=== PATIENT | female | born 1960 | race African-American/Black ===

== ENCOUNTER 2017-05-14 21:56 | Emergency (ER) | payer OTHER, BC ==
[~2017-05-14] VITALS: Ht 160 cm; Wt 83.0 kg
[2017-05-14 22:12] VITALS: BP 194/110; PULSE 86; RESP 16; TEMP 98; O2SAT 97
--- NOTE | 2017-05-14 22:37 | PD ---
HPI Chief Complaint: Musculoskeletal Complaint Time Seen by Provider: 22:32 Travel History International Travel<30 days: No Contact w/Intl Traveler<30days: No Traveled to known affect area: No History of Present Illness HPI 57-year-old female patient presents to the ER today because she states that she was walking in the parking lot after work and tripped on the pavement and fell onto both hands and her left rib area. She denies any head injury or loss of consciousness. She denies any shortness of breath or any other injuries. Modifying Factors: None Associated Signs & Symptoms: Trip and fall, left rib pain Risk Factors: None PFSH Past Surgical History Hysterectomy: Yes (Partial) Social History Tobacco Use: No Allergies-Medications (Allergen,Severity, Reaction): Coded Allergies: No Known Allergies (Verified Allergy, Unknown, 05/14/17) Reported Meds & Prescriptions Reported Meds & Active Scripts Active No Active Prescriptions or Reported Medications Review of Systems Except as stated in HPI: all other systems reviewed are Neg Physical Exam Narrative GENERAL: Well-developed middle age -[place] female patient currently in mild distress. Awake and oriented 3. SKIN: Focused skin assessment warm/dry. HEAD: Atraumatic. Normocephalic. EYES: Pupils equal and round. No scleral icterus. No injection or drainage. ENT: No nasal bleeding or discharge. Mucous membranes pink and moist. NECK: Trachea midline. No JVD. Supple. CHEST: Mild tenderness to the left lateral chest wall without deformity or crepitance. No retractions or use of accessory muscles. CARDIOVASCULAR: Regular rate and rhythm. No murmur appreciated. RESPIRATORY: No accessory muscle use. Clear to auscultation. Breath sounds equal bilaterally. GASTROINTESTINAL: Abdomen soft, non-tender, nondistended. Hepatic and splenic margins not palpable. Pelvis: Stable and nontender to palpation. EXTREMITIES: No clubbing, cyanosis, or edema. No joint tenderness, effusion, or edema noted. No snuffbox tenderness bilaterally. 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 No significant abrasions or lacerations. MUSCULOSKELETAL: No obvious deformities. No clubbing. No cyanosis. No edema. NEUROLOGICAL: Awake and alert. No obvious cranial nerve deficits. Motor grossly within normal limits. Normal speech. PSYCHIATRIC: Appropriate mood and affect; insight and judgment normal. Data Data Last Documented VS Vital Signs Date Time Temp Pulse Resp B/P (MAP) Pulse Ox O2 Delivery O2 Flow Rate FiO2 1/26/18 22:39 88 16 171/106 (127) 98 Room Air 05/14/17 22:12 98.0 Orders Orders Ribs, Uni (W/Exp Cxr-Min 3vw) (05/14/17 ) MDM Medical Decision Making Medical Screen Exam Complete: Yes Emergency Medical Condition: Yes Medical Record Reviewed: Yes Interpretation(s) Last 24 hours Impressions Ribs X-Ray 05/14/17 0000 Signed Impressions: Service Date/Time: Sunday, May 14, 2017 22:46 - CONCLUSION: No rib fracture is seen. Eric Carter MD Differential Diagnosis Trip and fall, left rib injury: Contusion versus rib fracture Narrative Course X-ray did not show any signs of rib fractures. At this point, my plan would be to release her with follow-up to primary care physician as needed. Return for any worsening in pain, or new symptoms as needed. The plan has been discussed with patient and she states understanding. Diagnosis Primary Impression: Fall (on)(from) sidewalk curb, initial encounter Additional Impression: Contusion of rib on left side Med/Other Pt SpecificInfo: Prescription(s) given Scripts Acetaminophen (Tylenol) 325 Mg Tab 650 MG PO Q6H Y for PAIN SCALE 1 TO 10, #15 TAB 0 Refills Prov: Courtney Lebron MD 05/14/17 Disposition: 01 DISCHARGE HOME Condition: Stable Courtney Lebron MD May 14, 2017 22:37
[2017-05-14 22:39] VITALS: BP 171/106; PULSE 88; RESP 16; O2SAT 98
--- NOTE | 2017-05-14 23:27 | RADRPT ---
EXAM DATE/TIME: 05/14/2017 22:46 [facility] COMPARISON: No previous studies available for comparison. INDICATIONS : Left anterior, superior rib pain post fall. MEDICAL HISTORY : None. SURGICAL HISTORY : None. ENCOUNTER: Initial ACUITY: 1 day PAIN SCORE: 10/10 LOCATION: Left chest FINDINGS: Multiple views of the left ribs were performed. There is no evidence of displaced fracture. No dest ructive lesions or areas of periosteal thickening are seen. Expiratory view of the chest is negative for pneumothorax. The mediastinal structures are midline. CONCLUSION: No rib fracture is seen. Eric Carter MD on May 14, 2017 at 23:23 Board Certified Radiologist. This report was verified electronically.
[2017-05-14] MEDS ORDERED: TYLE325T PO (23:34)
[2017-05-14 23:53] VITALS: BP 162/90
== END 2017-05-14 23:55 | disposition home or self-care (01) ==
LOC: PHED 21:56
DX: S20.212A Contusion of left front wall of thorax, initial encounter (principal); W01.0XXA Fall on same level from slipping, tripping and stumbling without subsequent striking against object, initial encounter; Y93.01 Activity, walking, marching and hiking; Y92.481 Parking lot as the place of occurrence of the external cause
CPT/HCPCS: 71101; 99283

== ENCOUNTER 2017-06-16 17:11 | Observation (INO) | payer BC, OTHER ==
[2017-06-16] VITALS (7 sets, daily range): BP systolic 155–213; BP diastolic 85–110; PULSE 99–125; RESP 14–22; TEMP 98.5–99.5; O2SAT 96–100
[~2017-06-16] VITALS: Ht 157.5 cm; Wt 81.0 kg
[~2017-06-16 17:11] MED LIST: TYLE325T PO
[2017-06-16] MEDS ORDERED: SODIUM CHLORIDE 0.9% FLUSH 10 ML FLUSH IV FLUSH PRN ×2 (17:45→21:00)
--- NOTE | 2017-06-16 18:14 | PD ---
HPI Chief Complaint: Dizziness Time Seen by Provider: 17:28 Travel History International Travel<30 days: No Contact w/Intl Traveler<30days: No Traveled to known affect area: No History of Present Illness HPI Patient 57-year-old female presents emergency department with several complaints. Her chief complaint is dizziness feeling like the room is spinning around which been going on on and off for the past few months but got worse over the past few hours. She has not seen another physician for this. She also endorses some chest tightness in the center of her chest and some numbness and tingling in her left arm. She states these are new complaints today. Has no history of heart disease or lung disease. Has never had a stress test or cardiac catheterization. States symptoms are moderate to severe, gradually worsening but intermittent over the past few months, associated with hypertension. PFSH Past Medical History Diminished Hearing: No Past Surgical History Hysterectomy: Yes (Partial) Social History Alcohol Use: No Tobacco Use: No Substance Use: No Allergies-Medications (Allergen,Severity, Reaction): Coded Allergies: No Known Allergies (Verified Allergy, Unknown, 06/16/17) Reported Meds & Prescriptions Reported Meds & Active Scripts Active No Active Prescriptions or Reported Medications Review of Systems Except as stated in HPI: all other systems reviewed are Neg Physical Exam Narrative GENERAL: Well-developed well-nourished in no obvious distress, quite pleasant peer SKIN: Focused skin assessment warm/dry. HEAD: Atraumatic. Normocephalic. EYES: Pupils equal and round. No scleral icterus. No injection or drainage. ENT: No nasal bleeding or discharge. Mucous membranes pink and moist. NECK: Trachea midline. No JVD. CARDIOVASCULAR: tachycardic with regular rhythm, no murmurs gallops or rubs.. No murmur appreciated. RESPIRATORY: No accessory muscle use. Clear to auscultation. Breath sounds equal bilaterally. GASTROINTESTINAL: Abdomen soft, non-tender, nondistended. Hepatic and splenic margins not palpable. MUSCULOSKELETAL: No obvious deformities. No clubbing. No cyanosis. No edema. NEUROLOGICAL: Awake and alert. Cranial nerves II through XII are grossly intact and nonfocal, 5 out of 5 strength in all 4 extremities, cerebellar testing with [id number] and heel cox testing negative peer PSYCHIATRIC: Appropriate mood and affect; insight and judgment normal. Data Data Last Documented VS Vital Signs Date Time Temp Pulse Resp B/P (MAP) Pulse Ox O2 Delivery O2 Flow Rate FiO2 06/16/17 19:15 100 18 155/101 (119) 98 Room Air 06/16/17 17:22 99.5 Orders Orders Electrocardiogram (06/16/17 ) Complete Blood Count With Diff (06/16/17 17:44) Comprehensive Metabolic Panel (06/16/17 17:44) Prothrombin Time / Inr (Pt) (06/16/17 17:44) Act Partial Throm Time (Ptt) (06/16/17 17:44) Troponin I (06/16/17 17:44) Thyroid Stimulating Hormone (06/16/17 17:44) Urinalysis - C+S If Indicated (06/16/17 17:44) Chest, Single Ap (06/16/17 17:44) Ct Brain W/O Iv Contrast(Rout) (06/16/17 17:44) Blood Glucose (06/16/17 17:44) Ecg Monitoring (06/16/17 17:44) Iv Access Insert/Monitor (06/16/17 17:44) Oximetry (06/16/17 17:44) Sodium Chloride 0.9% Flush (Ns Flush) (06/16/17 17:45) Diazepam (Valium) (06/16/17 18:30) Nitroglycerin 2% Oint (Nitroglycerin 2% (06/16/17 19:00) Labetalol Inj (Trandate Inj) (06/16/17 19:15) Urine Culture (06/16/17 18:44) Labs Laboratory Tests Test 06/16/17 18:04 06/16/17 18:44 White Blood Count 7.2 TH/MM3 Red Blood Count 4.72 MIL/MM3 Hemoglobin 13.5 GM/DL Hematocrit 39.9 % Mean Corpuscular Volume 84.6 FL Mean Corpuscular Hemoglobin 28.5 PG Mean Corpuscular Hemoglobin Concent 33.7 % Red Cell Distribution Width 14.3 % Platelet Count 202 TH/MM3 Mean Platelet Volume 9.5 FL Neutrophils (%) (Auto) 59.6 % Lymphocytes (%) (Auto) 31.6 % Monocytes (%) (Auto) 7.4 % Eosinophils (%) (Auto) 0.9 % Basophils (%) (Auto) 0.5 % Neutrophils # (Auto) 4.3 TH/MM3 Lymphocytes # (Auto) 2.3 TH/MM3 Monocytes # (Auto) 0.5 TH/MM3 Eosinophils # (Auto) 0.1 TH/MM3 Basophils # (Auto) 0.0 TH/MM3 CBC Comment DIFF FINAL Differential Comment Prothrombin Time 10.3 SEC Prothromb Time International Ratio 1.0 RATIO Activated Partial Thromboplast Time 25.0 SEC Blood Urea Nitrogen 10 MG/DL Creatinine 0.81 MG/DL Random Glucose 115 MG/DL Total Protein 8.1 GM/DL Albumin 3.9 GM/DL Calcium Level 9.2 MG/DL Alkaline Phosphatase 112 U/L Aspartate Amino Transf (AST/SGOT) 24 U/L Alanine Aminotransferase (ALT/SGPT) 21 U/L Total Bilirubin 0.4 MG/DL Sodium Level 138 MEQ/L Potassium Level 3.4 MEQ/L Chloride Level 104 MEQ/L Carbon Dioxide Level 29.6 MEQ/L Anion Gap 4 MEQ/L Estimat Glomerular Filtration Rate 88 ML/MIN Troponin I LESS THAN 0.02 NG/ML Thyroid Stimulating Hormone 3rd Gen 0.961 uIU/ML Urine Color LIGHT-YELLOW Urine Turbidity CLEAR Urine pH 7.0 Urine Specific [place] 1.004 Urine Protein NEG mg/dL Urine Glucose (UA) NEG mg/dL Urine Ketones NEG mg/dL Urine Occult Blood NEG Urine Nitrite NEG Urine Bilirubin NEG Urine Urobilinogen LESS THAN 2.0 MG/DL Urine Leukocyte Esterase TRACE Urine RBC LESS THAN 1 /hpf Urine WBC 1 /hpf Urine Squamous Epithelial Cells 1 /hpf Urine Bacteria RARE /hpf Urine Mucus FEW /lpf Microscopic Urinalysis Comment CATH-CULTURE IND MDM Medical Decision Making Medical Screen Exam Complete: Yes Emergency Medical Condition: Yes Differential Diagnosis Chest pain, ACS, RI, cerebellar stroke seems unlikely, vertigo Narrative Course Patient roomed in the emergency department, CT head shows old infarcts lacunar, troponin negative, EKG sinus tachycardia otherwise negative. Patient remaining hypertensive after Valium, nitroglycerin and labetalol were added. I have asked Dr. Waller to reassess the patient after his medications are given and disposition the patient appropriately. Scripts No Active Prescriptions or Reported Meds Simon Pinon MD Jun 16, 2017 18:14
[2017-06-16] MEDS ORDERED: DIAZEPAM 2 MG TAB PO ONE (18:30)
[2017-06-16 18:32] LABS: AUTOMATED NEUTROPHIL # 4.3 TH/MM3 (1.8-7.7); BASOPHIL % 0.5 % (0.0-2.0); EOSINOPHIL # 0.1 TH/MM3 (0-0.4); EOSINOPHIL % 0.9 % (0.0-4.0); HEMATOCRIT 39.9 % (35.0-46.0); HEMOGLOBIN 13.5 GM/DL (11.6-15.3); LYMPH % 31.6 % (9.0-44.0); LYMPHOCYTE # 2.3 TH/MM3 (1.0-4.8); MEAN CELL VOLUME 84.6 FL (80.0-100.0); MEAN CORPUSCULAR HEMOGLOBIN 28.5 PG (27.0-34.0); MEAN CORPUSCULAR HGB CONC 33.7 % (32.0-36.0); MEAN PLATELET VOLUME 9.5 FL (7.0-11.0); MONO % 7.4 % (0.0-8.0); MONOCYTE # 0.5 TH/MM3 (0-0.9); NEUT % 59.6 % (16.0-70.0); PLATELET COUNT 202 TH/MM3 (150-450); RED BLOOD COUNT 4.72 MIL/MM3 (4.00-5.30); RED CELL DISTRIBUTION WIDTH 14.3 % (11.6-17.2); WHITE BLOOD COUNT 7.2 TH/MM3 (4.0-11.0)
[2017-06-16 18:42] LABS: ALBUMIN 3.9 GM/DL (3.4-5.0); ALT (GPT) 21 U/L (10-53); AST (GOT) 24 U/L (15-37); BICARBONATE 29.6 MEQ/L (21.0-32.0); BLOOD UREA NITROGEN 10 MG/DL (7-18); CALCIUM 9.2 MG/DL (8.5-10.1); CHLORIDE 104 MEQ/L (98-107); CREATININE 0.81 MG/DL (0.50-1.00); GLOMERULAR FILTRATION RATE 88 ML/MIN (>89); GLUCOSE,RANDOM 115 MG/DL (74-106); SODIUM (NA) 138 MEQ/L (136-145)
[2017-06-16 18:45] LABS: PROTHROMBIN TIME - PATIENT 10.3 SEC (9.8-11.6)
[2017-06-16 18:52] LABS: ALKALINE PHOSPHATASE 112 U/L (45-117); TOTAL BILIRUBIN ADULT 0.4 MG/DL (0.2-1.0); TOTAL PROTEIN 8.1 GM/DL (6.4-8.2); TROPONIN I LESS THAN 0.02 NG/ML (0.02-0.05)
--- NOTE | 2017-06-16 18:52 | RADRPT ---
EXAM DATE/TIME: 06/16/2017 18:26 [facility] COMPARISON: No previous studies available for comparison. INDICATIONS : Elevated blood pressure,dizzy,altered mental status RADIATION DOSE: 56.35 CTDIvol (mGy) MEDICAL HISTORY : None SURGICAL HISTORY : Partial hysterectomy ENCOUNTER: Initial ACUITY: 1 day PAIN SCALE: 4/10 LOCATION: cranial TECHNIQUE: Multiple contiguous axial images were obtained of the head. Using automated exposure control and adj ustment of the mA and/or kV according to patient size, radiation dose was kept as low as reasonably a chievable to obtain optimal diagnostic quality images. DICOM format image data is available electro nically for review and comparison. FINDINGS: CEREBRUM: The ventricles are normal for age. No evidence of midline shift, mass lesion, hemorrhage or acute in farction. No extra-axial fluid collections are seen. Scattered areas of decreased attenuation are no deirdre within the bilateral basal ganglia consistent with probable old lacunar infarcts. Mild periventri cular and subcortical white matter small vessel ischemic changes are noted. POSTERIOR FOSSA: The cerebellum and brainstem are intact. The 4th ventricle is midline. The cerebellopontine angle i s unremarkable. EXTRACRANIAL: The visualized portion of the orbits is intact. SKULL: The calvaria is intact. No evidence of skull fracture. CONCLUSION: 1. Old lacunar infarcts within the bilateral basal ganglia. 2. Mild periventricular and subcortical white matter small vessel ischemic changes. 3. No acute infarct, acute hemorrhage, mass effect or extra axial fluid collections. Simon Gil MD on June 16, 2017 at 18:49 Board Certified Radiologist. This report was verified electronically.
[2017-06-16] MEDS ORDERED: NITROGLYCERIN 2% OINT 1 GM PACKET TOPICAL ONE (19:00)
--- NOTE | 2017-06-16 19:04 | RADRPT ---
EXAM DATE/TIME: 06/16/2017 18:10 [facility] COMPARISON: No previous studies available for comparison. INDICATIONS : Palpitations. MEDICAL HISTORY : None. SURGICAL HISTORY : None. ENCOUNTER: Initial ACUITY: 1 month PAIN SCORE: 0/10 LOCATION: Bilateral chest FINDINGS: A single view of the chest demonstrates the lungs to be symmetrically aerated without evidence of mas s, infiltrate or effusion. The cardiomediastinal contours are unremarkable. Degenerative changes and mild scoliosis of the thoracic spine are noted. CONCLUSION: No acute cardiopulmonary disease. Simon Gil MD on June 16, 2017 at 19:03 Board Certified Radiologist. This report was verified electronically.
[2017-06-16] MEDS ORDERED: LABETALOL HCL 100 MG/20 ML VIAL IV PUSH ONE (19:15)
[2017-06-16 19:17] LABS: BACTERIA, URINE RARE /hpf; BILIRUBIN, URINE NEG (NEG); BLOOD, URINE NEG (NEG); GLUCOSE,URINE NEG (NEG); KETONE, URINE NEG (NEG); MUCUS URINE FEW /lpf (OCC); NITRITE,URINE NEG (NEG); SQUAMOUS EPITHELIAL CELL URINE 1 /hpf (0-5); URINE COLOR LIGHT-YELLOW (YELLW/STRAW); URINE LEUKOCYTE ESTERASE TRACE (NEG)
--- NOTE | 2017-06-16 19:38 | PD ---
Physical Exam Date Seen by Provider: Jun 16, 2017 Time Seen by Provider: 19:34 Narrative Accepted in transfer of care from Dr. Pinon Data Data Last Documented VS Vital Signs Date Time Temp Pulse Resp B/P (MAP) Pulse Ox O2 Delivery O2 Flow Rate FiO2 06/16/17 19:15 100 18 155/101 (119) 98 Room Air 06/16/17 17:22 99.5 Orders Orders Electrocardiogram (06/16/17 ) Complete Blood Count With Diff (06/16/17 17:44) Comprehensive Metabolic Panel (06/16/17 17:44) Prothrombin Time / Inr (Pt) (06/16/17 17:44) Act Partial Throm Time (Ptt) (06/16/17 17:44) Troponin I (06/16/17 17:44) Thyroid Stimulating Hormone (06/16/17 17:44) Urinalysis - C+S If Indicated (06/16/17 17:44) Chest, Single Ap (06/16/17 17:44) Ct Brain W/O Iv Contrast(Rout) (06/16/17 17:44) Blood Glucose (06/16/17 17:44) Ecg Monitoring (06/16/17 17:44) Iv Access Insert/Monitor (06/16/17 17:44) Oximetry (06/16/17 17:44) Sodium Chloride 0.9% Flush (Ns Flush) (06/16/17 17:45) Diazepam (Valium) (06/16/17 18:30) Nitroglycerin 2% Oint (Nitroglycerin 2% (06/16/17 19:00) Labetalol Inj (Trandate Inj) (06/16/17 19:15) Urine Culture (06/16/17 18:44) Labs Laboratory Tests Test 06/16/17 18:04 06/16/17 18:44 White Blood Count 7.2 TH/MM3 Red Blood Count 4.72 MIL/MM3 Hemoglobin 13.5 GM/DL Hematocrit 39.9 % Mean Corpuscular Volume 84.6 FL Mean Corpuscular Hemoglobin 28.5 PG Mean Corpuscular Hemoglobin Concent 33.7 % Red Cell Distribution Width 14.3 % Platelet Count 202 TH/MM3 Mean Platelet Volume 9.5 FL Neutrophils (%) (Auto) 59.6 % Lymphocytes (%) (Auto) 31.6 % Monocytes (%) (Auto) 7.4 % Eosinophils (%) (Auto) 0.9 % Basophils (%) (Auto) 0.5 % Neutrophils # (Auto) 4.3 TH/MM3 Lymphocytes # (Auto) 2.3 TH/MM3 Monocytes # (Auto) 0.5 TH/MM3 Eosinophils # (Auto) 0.1 TH/MM3 Basophils # (Auto) 0.0 TH/MM3 CBC Comment DIFF FINAL Differential Comment Prothrombin Time 10.3 SEC Prothromb Time International Ratio 1.0 RATIO Activated Partial Thromboplast Time 25.0 SEC Blood Urea Nitrogen 10 MG/DL Creatinine 0.81 MG/DL Random Glucose 115 MG/DL Total Protein 8.1 GM/DL Albumin 3.9 GM/DL Calcium Level 9.2 MG/DL Alkaline Phosphatase 112 U/L Aspartate Amino Transf (AST/SGOT) 24 U/L Alanine Aminotransferase (ALT/SGPT) 21 U/L Total Bilirubin 0.4 MG/DL Sodium Level 138 MEQ/L Potassium Level 3.4 MEQ/L Chloride Level 104 MEQ/L Carbon Dioxide Level 29.6 MEQ/L Anion Gap 4 MEQ/L Estimat Glomerular Filtration Rate 88 ML/MIN Troponin I LESS THAN 0.02 NG/ML Thyroid Stimulating Hormone 3rd Gen 0.961 uIU/ML Urine Color LIGHT-YELLOW Urine Turbidity CLEAR Urine pH 7.0 Urine Specific [place] 1.004 Urine Protein NEG mg/dL Urine Glucose (UA) NEG mg/dL Urine Ketones NEG mg/dL Urine Occult Blood NEG Urine Nitrite NEG Urine Bilirubin NEG Urine Urobilinogen LESS THAN 2.0 MG/DL Urine Leukocyte Esterase TRACE Urine RBC LESS THAN 1 /hpf Urine WBC 1 /hpf Urine Squamous Epithelial Cells 1 /hpf Urine Bacteria RARE /hpf Urine Mucus FEW /lpf Microscopic Urinalysis Comment CATH-CULTURE IND MDM Medical Record Reviewed: Yes Supervised Visit with ADAM: No Interpretation(s) Last Impressions Head CT [id number]/16/[id number] Signed Impressions: Service Date/Time: Friday, June 16, 2017 18:26 - CONCLUSION: 1. Old lacunar infarcts within the bilateral basal ganglia. 2. Mild periventricular and subcortical white matter small vessel ischemic changes. 3. No acute infarct, acute hemorrhage, mass effect or extra axial fluid collections. Simon Gil MD Chest X-Ray [id number] Signed Impressions: Service Date/Time: Friday, June 16, 2017 18:10 - CONCLUSION: No acute cardiopulmonary disease. Simon Gil MD CBC & BMP Diagram 06/16/17 18:04 Total Protein 8.1, Albumin 3.9, Calcium Level 9.2, Alkaline Phosphatase 112, Aspartate Amino Transf (AST/SGOT) 24, Alanine Aminotransferase (ALT/SGPT) 21, Total Bilirubin 0.4 Vital Signs Date Time Temp Pulse Resp B/P (MAP) Pulse Ox O2 Delivery O2 Flow Rate FiO2 06/16/17 19:15 100 18 155/101 (119) 98 Room Air 06/16/17 18:48 117 17 207/110 (142) 97 Room Air 06/16/17 18:23 118 06/16/17 18:22 112 17 213/106 (141) 96 Room Air 06/16/17 17:22 99.5 125 22 196/109 (138) 100 Differential Diagnosis Accepted in transfer of care from Dr. Pinon; please refer to his dictation Narrative Course Accepted in transfer of care from Dr. Pinon; for follow up pending diagnostics, medication effect, and admission. At shift change patient administered Nitropaste 1/2" and labetalol 10 mg IV At 7:37 PM blood pressure is now 155/101 and HR 101 Diagnosis Primary Impression: Dizziness Additional Impression: Hypertensive urgency Scripts No Active Prescriptions or Reported Meds Sarah Waller MD Jun 16, 2017 19:38
[2017-06-16] MEDS ORDERED: ASPIRIN 81 MG CHEW TAB CHEW ONE (20:15)
--- NOTE | 2017-06-16 20:38 | HHI.HP ---
HPI Service [facility] Primary Care Physician Chris Solomon III, MD Admission Diagnosis Dizziness; hypertensive urgency; chest pain Diagnoses: Chief Complaint: Lightheadedness, chest discomfort Travel History International Travel<30 Days: No Contact w/Intl Traveler <30 Da: No Traveled to Known Affected Are: No History of Present Illness 57-year-old female with no known medical history presents to the emergency room with complaint of not feeling well including lightheadedness, chest tightness, numbness and tingling in her arms. She denies any known medical history. She denies experiencing similar symptoms in the past. No associated shortness of breath, nausea or vomiting. Workup in the emergency room revealed markedly elevated blood pressure up to 213/106. Patient states she was told her blood pressure was high about 3 years ago but she has been trying to manage with diet. Never tried any medications. Review of Systems Constitutional: COMPLAINS OF: Fatigue Cardiovascular: COMPLAINS OF: Chest pain Except as stated in HPI: all other systems reviewed are Neg Endorsed lightheadedness. Past Family Social History Past Medical History untreated hypertension Past Surgical History Partial hysterectomy Reported Medications Reported Meds & Active Scripts Active No Active Prescriptions or Reported Medications Allergies: Coded Allergies: No Known Allergies (Verified Allergy, Unknown, 06/16/17) Social History Patient denies using tobacco, alcohol, or illicit drugs. Physical Exam Vital Signs Vital Signs Date Time Temp Pulse Resp B/P (MAP) Pulse Ox O2 Delivery O2 Flow Rate FiO2 06/16/17 20:10 99 14 161/99 (119) 99 Room Air 06/16/17 19:15 100 18 155/101 (119) 98 Room Air 06/16/17 18:48 117 17 207/110 (142) 97 Room Air 06/16/17 18:23 118 06/16/17 18:22 112 17 213/106 (141) 96 Room Air 06/16/17 17:22 99.5 125 22 196/109 (138) 100 Physical Exam GENERAL: This is a well-nourished, well-developed patient, in no apparent distress. SKIN: No rashes, ecchymoses or lesions. Cool and dry. HEAD: Atraumatic. Normocephalic. No temporal or scalp tenderness. EYES: Pupils equal round and reactive. Extraocular motions intact. No scleral icterus. No injection or drainage. ENT: Nose without bleeding, purulent drainage or septal hematoma. Throat without erythema, tonsillar hypertrophy or exudate. Uvula midline. Airway patent. NECK: Trachea midline. No JVD or lymphadenopathy. Supple, nontender, no meningeal signs. CARDIOVASCULAR: Regular rate and rhythm without murmurs, gallops, or rubs. RESPIRATORY: Clear to auscultation. Breath sounds equal bilaterally. No wheezes , rales, or rhonchi. GASTROINTESTINAL: Abdomen soft, non-tender, nondistended. No hepato-splenomegaly , or palpable masses. No guarding. MUSCULOSKELETAL: Extremities without clubbing, cyanosis, or edema. No joint tenderness, effusion, or edema noted. No calf tenderness. Negative Homans sign bilaterally. NEUROLOGICAL: Awake and alert. Cranial nerves II through XII intact. Motor and sensory grossly within normal limits. Five out of 5 muscle strength in all muscle groups. Normal speech. Laboratory Laboratory Tests Test 06/16/17 18:04 06/16/17 18:44 White Blood Count 7.2 Red Blood Count 4.72 Hemoglobin 13.5 Hematocrit 39.9 Mean Corpuscular Volume 84.6 Mean Corpuscular Hemoglobin 28.5 Mean Corpuscular Hemoglobin Concent 33.7 Red Cell Distribution Width 14.3 Platelet Count 202 Mean Platelet Volume 9.5 Neutrophils (%) (Auto) 59.6 Lymphocytes (%) (Auto) 31.6 Monocytes (%) (Auto) 7.4 Eosinophils (%) (Auto) 0.9 Basophils (%) (Auto) 0.5 Neutrophils # (Auto) 4.3 Lymphocytes # (Auto) 2.3 Monocytes # (Auto) 0.5 Eosinophils # (Auto) 0.1 Basophils # (Auto) 0.0 CBC Comment DIFF FINAL Differential Comment Prothrombin Time 10.3 Prothromb Time International Ratio 1.0 Activated Partial Thromboplast Time 25.0 Blood Urea Nitrogen 10 Creatinine 0.81 Random Glucose 115 Total Protein 8.1 Albumin 3.9 Calcium Level 9.2 Alkaline Phosphatase 112 Aspartate Amino Transf (AST/SGOT) 24 Alanine Aminotransferase (ALT/SGPT) 21 Total Bilirubin 0.4 Sodium Level 138 Potassium Level 3.4 Chloride Level 104 Carbon Dioxide Level 29.6 Anion Gap 4 Estimat Glomerular Filtration Rate 88 Troponin I LESS THAN 0.02 Thyroid Stimulating Hormone 3rd Gen 0.961 Urine Color LIGHT-YELLOW Urine Turbidity CLEAR Urine pH 7.0 Urine Specific [place] 1.004 Urine Protein NEG Urine Glucose (UA) NEG Urine Ketones NEG Urine Occult Blood NEG Urine Nitrite NEG Urine Bilirubin NEG Urine Urobilinogen LESS THAN 2.0 Urine Leukocyte Esterase TRACE Urine RBC LESS THAN 1 Urine WBC 1 Urine Squamous Epithelial Cells 1 Urine Bacteria RARE Urine Mucus FEW Microscopic Urinalysis Comment CATH-CULTURE IND Date/Time Source Procedure Growth Status 06/16/17 18:44 Urine Catheterized Urine Urine Culture Pending Received Result Diagram: 06/16/174 06/16/17 180 Caprindarian VTE Risk Assessment Caprini VTE Risk Assessment: No/Low Risk (score <= 1) Caprini Risk Assessment Model Point Value = 1 Point Value = 2 Point Value = 3 Point Value = 5 Age 41-60 Minor surgery BMI > 25 kg/m2 Swollen legs Varicose veins or History of unexplained or recurrent spontaneous Oral contraceptives or hormone replacement Sepsis (< 1 month) Serious lung disease, including pneumonia (< 1 month) Abnormal pulmonary function Acute myocardial infarction Congestive heart failure (< 1 month) History of inflammatory bowel disease Medical patient at bed rest Age 61-74 Arthroscopic surgery Major open surgery (> 45 min) Laparoscopic surgery (> 45 min) Malignancy Confined to bed (> 72 hours) Immobilizing plaster cast Central venous access Age >= 75 History of VTE Family history of VTE Factor V Leiden Prothrombin [id number] Lupus anticoagulant Anticardiolipin antibodies Elevated serum homocysteine Heparin-induced thrombocytopenia Other congenital or acquired thrombophilia Stroke (< 1 month) Elective arthroplasty Hip, pelvis, or leg fracture Acute spinal cord injury (< 1 month) Prophylaxis Regimen Total Risk Factor Score Risk Level Prophylaxis Regimen 0-1 Low Early ambulation 2 Moderate Order ONE of the following: *Sequential Compression Device (SCD) *Heparin 5000 units SQ BID 3-4 Higher Order ONE of the following medications: *Heparin 5000 units SQ TID *Enoxaparin/Lovenox 40 mg SQ daily (WT < 150 kg, CrCl > 30 mL/min) *Enoxaparin/Lovenox 30 mg SQ daily (WT < 150 kg, CrCl > 10-29 mL/min) *Enoxaparin/Lovenox 30 mg SQ BID (WT < 150 kg, CrCl > 30 mL/min) AND/OR *Sequential Compression Device (SCD) 5 or more Highest Order ONE of the following medications: *Heparin 5000 units SQ TID (Preferred with Epidurals) *Enoxaparin/Lovenox 40 mg SQ daily (WT < 150 kg, CrCl > 30 mL/min) *Enoxaparin/Lovenox 30 mg SQ daily (WT < 150 kg, CrCl > 10-29 mL/min) *Enoxaparin/Lovenox 30 mg SQ BID (WT < 150 kg, CrCl > 30 mL/min) AND *Sequential Compression Device (SCD) Assessment and Plan Problem List: (1) Hypertensive urgency ICD Code: I16.0 - Hypertensive urgency Status: Acute Plan: Untreated/uncontrolled hypertension. - Patient has been given IV labetalol in the ED with some response but she requires further monitoring and titration of antihypertensives. - Will most likely require at least 2 antihypertensives agents. - Start lisinopril 10 mg twice a day and Coreg 3.125 mg twice a day given tachycardia. -Discuss the need to be on medication with the patient and her daughter. She is agreeable and states she has a PCP to follow up with. (2) Chest pain ICD Code: R07.9 - Chest pain, unspecified Plan: Mild, atypical. Probably secondary to uncontrolled hypertension as above. - Initial EKG personally reviewed which showed sinus tachycardia. Initial cardiac enzymes negative. Started on Coreg as above. - Continue ACS rule out with serial enzymes and EKG. (3) Dizziness ICD Code: R42 - Dizziness and giddiness Status: Acute Plan: Likely secondary to uncontrolled hypertension. She does have evidence of prior lacunar infarct. No acute findings on CT currently. - Continue to monitor. Discussed Condition With Lorenza Zapata MD Jun 16, 2017 20:38
[2017-06-16] MEDS ORDERED: ENALAPRILAT 1.25 MG/ML VIAL IV PUSH PRN (21:00)
[2017-06-16] MEDS ORDERED: LABETALOL HCL 100 MG/20 ML VIAL IV PUSH PRN (21:00)
[2017-06-16 21:36] LABS: CHOLESTEROL/ HDL RATIO 2.48 RATIO; HDL CHOLESTEROL 76.2 MG/DL (40.0-60.0)
[2017-06-16] MEDS: SODIUM CHLORIDE 0.9% FLUSH 10 ML FLUSH IV FLUSH SCH (21:42)
[2017-06-16] MEDS: CARVEDILOL 3.125 MG TAB PO SCH (21:42)
[2017-06-16] MEDS: LISINOPRIL 10 MG TAB PO SCH (21:42)
[2017-06-17] VITALS (11 sets, daily range): BP systolic 98–133; BP diastolic 52–86; PULSE 73–98; RESP 14–18; TEMP 97.8–98.7; O2SAT 95–98
[2017-06-17 01:03] LABS: TROPONIN I LESS THAN 0.02 NG/ML (0.02-0.05)
[2017-06-17 07:48] LABS: BICARBONATE 30.8 MEQ/L (21.0-32.0); BLOOD UREA NITROGEN 16 MG/DL (7-18); CALCIUM 9.2 MG/DL (8.5-10.1); CHLORIDE 104 MEQ/L (98-107); CREATININE 0.87 MG/DL (0.50-1.00); GLOMERULAR FILTRATION RATE 81 ML/MIN (>89); GLUCOSE,RANDOM 83 MG/DL (74-106); SODIUM (NA) 140 MEQ/L (136-145)
[2017-06-17 07:52] LABS: TROPONIN I LESS THAN 0.02 NG/ML (0.02-0.05)
[2017-06-17] MEDS: CARVEDILOL 3.125 MG TAB PO SCH ×2 (10:35→21:38)
[2017-06-17] MEDS: LISINOPRIL 10 MG TAB PO SCH ×2 (10:35→21:39)
[2017-06-17] MEDS: SODIUM CHLORIDE 0.9% FLUSH 10 ML FLUSH IV FLUSH SCH ×2 (10:36→21:41)
--- NOTE | 2017-06-17 10:55 | EKG ---
Date Performed: 06/16/2017 Time Performed: 17:31:24 PTAGE: 57 years EKG: SINUS TACHYCARDIA POSSIBLE LEFT ATRIAL ENLARGEMENT PROBABLE INFERIOR MYOCARDIAL INFARCTION ABNORMAL ECG NO PREVIOUS TRACING DOCTOR: Sadiq Kline Interpretating Date/Time 06/17/2017 10:51:35
--- NOTE | 2017-06-17 11:20 | HHI.PR ---
Subjective Remarks Follow-up visit dizziness, lightheadedness, uncontrolled hypertension. Patient seen and examined today sitting in bed. Family at the bedside. Reports she is doing better however continues to have dizziness especially when she gets out of bed and go to the bathroom. States she has fallen a week ago, but did not hit her head or injured herself but states that because of the dizziness, described as "things are moving around," that's why she fell. Patient states that she is following a glass cutter helper and she has "leaky heart/ valve." Discussed with patient and family member results of the CT of the head plan to start her on aspirin, and low-dose atorvastatin. Discuss risk and benefits. Agreeable with plan. Denies pain and discomfort. Denies SOB/ dyspnea. Denies chest pain, palpitations. Denies fevers, chills, n/v/d. Denies dysuria. Objective Vitals Vital Signs Date Time Temp Pulse Resp B/P (MAP) Pulse Ox O2 Delivery O2 Flow Rate FiO2 06/17/17 08:33 98.7 89 16 117/74 (88) 96 06/17/17 05:05 97.8 85 16 119/71 (87) 98 06/17/17 04:25 77 06/17/17 00:51 98.0 98 14 98/55 (69) 96 06/17/17 00:05 98 06/16/17 22:09 98.5 103 16 163/85 (111) 96 06/16/17 21:44 105 18 170/100 (123) 100 Room Air 06/16/17 20:10 99 14 161/99 (119) 99 Room Air 06/16/17 19:15 100 18 155/101 (119) 98 Room Air 06/16/17 18:48 117 17 207/110 (142) 97 Room Air 06/16/17 18:23 118 06/16/17 18:22 112 17 213/106 (141) 96 Room Air 06/16/17 17:22 99.5 125 22 196/109 (138) 100 I/O 06/16/17 06/16/17 06/16/17 06/17/17 06/17/17 06/17/17 07:00 15:00 23:00 07:00 15:00 23:00 Intake Total 480 ml Balance 480 ml Intake Oral 480 ml Result Diagram: 06/16/17 18006/17/17 0630 Imaging Last Impressions Carotid Artery Ultrasound 06/17/17 0000 Signed Impressions: Service Date/Time: June 11:35 - CONCLUSION: 1. Mild bilateral carotid plaque 2. No evidence of hemodynamically significant stenosis. 3. Antegrade flow in both vertebral arteries. Wilbert Alamo MD Head CT [id number]/16/[id number] Signed Impressions: Service Date/Time: Friday, June 16, 2017 18:26 - CONCLUSION: 1. Old lacunar infarcts within the bilateral basal ganglia. 2. Mild periventricular and subcortical white matter small vessel ischemic changes. 3. No acute infarct, acute hemorrhage, mass effect or extra axial fluid collections. Simon Gil MD Chest X-Ray [id number]/16/[id number] Signed Impressions: Service Date/Time: Friday, June 16, 2017 18:10 - CONCLUSION: No acute cardiopulmonary disease. Simon Gil MD Objective Remarks GENERAL: This is a well-nourished, well-developed patient, in no apparent distress. SKIN: Warm and dry HEENT: Normocephalic. Pupils equal round and reactive. Nose without bleeding. Airway patent. NECK: Trachea midline. No JVD. Supple. CARDIOVASCULAR: Regular rate and rhythm with 2/6 murmurs. No gallops, or rubs. RESPIRATORY: Clear to auscultation. Breath sounds equal bilaterally. No wheezes , rales, or rhonchi. GASTROINTESTINAL: Abdomen soft, non-tender, nondistended. Bowel Sounds normoactive x4. MUSCULOSKELETAL: Extremities without clubbing, cyanosis, or edema. NEUROLOGICAL: Awake and alert. Oriented to time, place, person. No focal neuro deficit. Moves all extremities. Normal speech. A/P Problem List: (1) Hypertensive urgency ICD Code: I16.0 - Hypertensive urgency Status: Acute (2) Chest pain ICD Code: R07.9 - Chest pain, unspecified (3) Dizziness ICD Code: R42 - Dizziness and giddiness Status: Acute Assessment and Plan Patient is a 57 year old female who came into the hospital with complaints of not feeling well, chest tightness, numbness and tingling in her arms, lightheadedness. Hypertensive urgency Uncontrolled HTN Tachycardia - started on lisinopril 10 mg, Coreg 3.125 mg twice a day for tachycardia - EKG reviewed showed sinus tachycardia - She will follow up with her PCP Dr. Solomon to continue to monitor blood pressure. Also discussed with patient that if lisinopril is not able to help her her PCP can change the medication to possibly a calcium channel nadine. Chest pain - This is probably related to uncontrolled hypertension - Troponin negative 3 - CK within normal - Currently denies chest pain Dizziness - LDL profile reviewed elevated LDL at 105, HDL 76.2 - CT of the head showed old lacunar infarcts within the bilateral basal ganglia. 2. Mild periventricular and subcortical white matter small vessel ischemic changes. 3. No acute infarct, acute hemorrhage, mass effect or extra- axial fluid collections. - US carotids showed 1. Mild bilateral carotid plaque 2. No evidence of hemodynamically significant stenosis. 3. Antegrade flow in both vertebral arteries. - Check orthostatic BP - Discuss with patient and family results of CT scan of the head. Discuss starting aspirin 81 mg, Lipitor 10 mg daily. Patient states that she is on aspirin currently 81 mg. Discuss risks and benefits of statin use. Discussed that she needs to follow-up with PCP and cardiology to monitor lipid panel in 3 months. She states she has a leaky heart or valve discussed to follow with cardiology. Agrees with plan and verbalized understanding. DVT prop SCDs Discharge Planning If Significantly improve, plan to discharge home tomorrow. Follow-up with PCP and glass cutter helper. Shabbir Ramires Jun 17, 2017 11:20
--- NOTE | 2017-06-17 12:09 | RADRPT ---
EXAM DATE/TIME: 06/17/2017 11:35 [facility] COMPARISON: No previous studies available for comparison. INDICATIONS : Pre syncope. MEDICAL HISTORY : Hypercholesterolemia. Hypertension. Asthma. Chest pain. SURGICAL HISTORY : Hysterectomy. ENCOUNTER: Initial ACUITY: 1 day PAIN SCORE: 0/10 LOCATION: Bilateral neck PEAK SYSTOLIC VELOCITIES (cm/sec): ICA/CCA RATIO: Right: 0.6 Left: 1.4 ICA: Right: 101 Left: 99 CCA: Right: 179 Left: 71 ECA: Right: 120 Left: 68 VERTEBRAL: Right: 60 antegrade Left: 69 antegrade Elevated flow velocities and ICA/CCA ratios have been found to correlate with increased degrees of vessel stenosis, calculated as percentage of diameter relative to a normal segment of distal ICA/CCA FINDINGS: Mild plaque is identified in both carotid bifurcations. RIGHT CAROTID: No significant stenosis is visualized. The waveforms are within normal limits. LEFT CAROTID: No significant stenosis is visualized. The waveforms are within normal limits. VERTEBRAL ARTERIES: Antegrade flow is seen in both vertebral arteries. MISCELLANEOUS: None. CONCLUSION: 1. Mild bilateral carotid plaque 2. No evidence of hemodynamically significant stenosis. 3. Antegrade flow in both vertebral arteries. Wilbert Alamo MD on June 17, 2017 at 12:05 Board Certified Radiologist. This report was verified electronically.
[2017-06-17] MEDS: ATORVASTATIN 10 MG TAB PO SCH (15:08)
[2017-06-17] MEDS: ASPIRIN EC 81 MG TABEC PO SCH (15:08)
[2017-06-18 03:53] VITALS: BP 117/80; PULSE 71; RESP 16; TEMP 97.8; O2SAT 98
[2017-06-18 07:00] VITALS: PULSE 68
[2017-06-18 07:30] VITALS: BP_SYST 133; BP_SYST 134; BP_SYST 145; BP_DIAS 81; BP_DIAS 85; BP_DIAS 89; PULSE 70; RESP 16; TEMP 98.1; O2SAT 96
[2017-06-18] MEDS: SODIUM CHLORIDE 0.9% FLUSH 10 ML FLUSH IV FLUSH SCH (09:11)
[2017-06-18] MEDS: ATORVASTATIN 10 MG TAB PO SCH (09:11)
[2017-06-18] MEDS: LISINOPRIL 10 MG TAB PO SCH (09:11)
[2017-06-18] MEDS: CARVEDILOL 3.125 MG TAB PO SCH (09:11)
[2017-06-18] MEDS: ASPIRIN EC 81 MG TABEC PO SCH (09:12)
--- NOTE | 2017-06-18 09:32 | HHI.PR ---
Subjective Remarks Follow-up visit dizziness, lightheadedness, uncontrolled hypertension. Patient seen and examined today sitting in bed. Friend at the bedside. Patient states she is doing fine. Denies any chest pain, palpitations, headaches. Denies any fevers, chills, nausea, vomiting, diarrhea. States that she has no dizziness this time. Discussed with patient that the dizziness is unlikely to be orthostatic hypotension as her orthostatic BP did not show any drop. This is most likely vertigo type is it comes and goes, spinning sensation in the room aggravated by head movement. Objective Vitals Vital Signs Date Time Temp Pulse Resp B/P (MAP) Pulse Ox O2 Delivery O2 Flow Rate FiO2 06/18/17 07:30 98.1 70 16 133/85 (101) 96 134/81 (98) 145/89 (107) 06/18/17 03:53 97.8 71 16 117/80 (92) 98 06/17/17 23:35 98.4 75 16 98/52 (67) 95 06/17/17 23:05 73 06/17/17 20:09 98.6 90 16 116/63 (80) 97 06/17/17 16:25 98.2 83 18 133/86 (102) 98 06/17/17 12:30 98.0 96 16 106/58 (74) 95 I/O 06/17/17 06/17/17 06/17/17 06/18/17 06/18/17 06/18/17 07:00 15:00 23:00 07:00 15:00 23:00 Intake Total 480 ml 720 ml Balance 480 ml 720 ml Intake Oral 480 ml 720 ml # Voids 2 Result Diagram: 06/16/17 1804 06/17/17 0630 Imaging Last Impressions Carotid Artery Ultrasound 06/17/17 0000 Signed Impressions: Service Date/Time: June 11:35 - CONCLUSION: 1. Mild bilateral carotid plaque 2. No evidence of hemodynamically significant stenosis. 3. Antegrade flow in both vertebral arteries. Wilbert Alamo MD Head CT 06/16/17 1744 Signed Impressions: Service Date/Time: Friday, June 16, 2017 18:26 - CONCLUSION: 1. Old lacunar infarcts within the bilateral basal ganglia. 2. Mild periventricular and subcortical white matter small vessel ischemic changes. 3. No acute infarct, acute hemorrhage, mass effect or extra axial fluid collections. Simon Gil MD Chest X-Ray 06/16/17 1744 Signed Impressions: Service Date/Time: Friday, June 16, 2017 18:10 - CONCLUSION: No acute cardiopulmonary disease. Simon Gil MD Objective Remarks GENERAL: This is a well-nourished, well-developed patient, in no apparent distress. SKIN: Warm and dry HEENT: Normocephalic. Pupils equal round and reactive. Nose without bleeding. Airway patent. NECK: Trachea midline. No JVD. Supple. CARDIOVASCULAR: Regular rate and rhythm with 2/6 murmurs. No gallops, or rubs. RESPIRATORY: Clear to auscultation. Breath sounds equal bilaterally. No wheezes , rales, or rhonchi. GASTROINTESTINAL: Abdomen soft, non-tender, nondistended. Bowel Sounds normoactive x4. MUSCULOSKELETAL: Extremities without clubbing, cyanosis, or edema. NEUROLOGICAL: Awake and alert. Oriented to time, place, person. No focal neuro deficit. Moves all extremities. Normal speech. Procedures None A/P Problem List: (1) Hypertensive urgency ICD Code: I16.0 - Hypertensive urgency Status: Acute (2) Chest pain ICD Code: R07.9 - Chest pain, unspecified (3) Dizziness ICD Code: R42 - Dizziness and giddiness Status: Acute Assessment and Plan Patient is a 57 year old female who came into the hospital with complaints of not feeling well, chest tightness, numbness and tingling in her arms, lightheadedness. Hypertensive urgency Uncontrolled HTN Tachycardia - started on lisinopril 10 mg, Coreg 3.125 mg twice a day for tachycardia - EKG reviewed showed sinus tachycardia - She will follow up with her PCP Dr. Solomon to continue to monitor blood pressure. Also discussed with patient that if lisinopril is not able to help her her PCP can change the medication to possibly a calcium channel nadine. - BP Trend improved Chest pain - This is probably related to uncontrolled hypertension - Troponin negative 3 - CK within normal - EKG reviewed - Currently denies chest pain Dizziness Vertigo - LDL profile reviewed elevated LDL at 105, HDL 76.2 - CT of the head showed old lacunar infarcts within the bilateral basal ganglia. 2. Mild periventricular and subcortical white matter small vessel ischemic changes. 3. No acute infarct, acute hemorrhage, mass effect or extra- axial fluid collections. - US carotids showed 1. Mild bilateral carotid plaque 2. No evidence of hemodynamically significant stenosis. 3. Antegrade flow in both vertebral arteries. - Discuss with patient and family results of CT scan of the head. Discuss starting aspirin 81 mg, Lipitor 10 mg daily. Patient states that she is on aspirin currently 81 mg. Discuss risks and benefits of statin use. Discussed that she needs to follow-up with PCP and cardiology to monitor lipid panel in 3 months. She states she has a leaky heart or valve discussed to follow with cardiology. Agrees with plan and verbalized understanding. - Orthostatic BP within normal. - This is most likely vertigo type is it comes and goes, spinning sensation in the room aggravated by head movement. Vertigo risk as patient had previous lacunar infarct. - Follow-up with PCP for further monitoring. Patient will placed on meclizine 25 mg as needed. DVT prop SCDs Discharge Planning Plan to DC home today follow-up with PCP and cardiology in outpatient setting. Shabbir Ramires Jun 18, 2017 09:32
[2017-06-18] MEDS ORDERED: LISI10TA3 PO (11:38)
[2017-06-18] MEDS ORDERED: LIPI10TA PO (11:38)
[2017-06-18] MEDS ORDERED: CARV3.125 PO (11:38)
[2017-06-18] MEDS ORDERED: ECASA81 PO (11:38)
[2017-06-18 11:55] VITALS: BP 129/81; PULSE 80; RESP 20; TEMP 98.3; O2SAT 96
--- NOTE | 2017-06-18 12:22 | HHI.DCPOC ---
Discharge Care Plan Diagnosis: (1) Hypertensive urgency (2) Chest pain (3) Vertigo (4) Dizziness Your Health Problems Are: Chest Pain Goals to Promote Your Health * To prevent worsening of your condition and complications * To maintain your health at the optimal level Directions to Meet Your Goals Take your medications as prescribed Follow your dietary instruction Follow activity as directed Keep your appointments as scheduled Take your immunizations and boosters as scheduled If your symptoms worsen call your PCP, if no PCP go to Urgent Care Center or Emergency Room Smoking is Dangerous to Your Health. Avoid second hand smoke Call the 24-hour hour crisis hotline for domestic abuse at Shabbir Ramires Jun 18, 2017 12:22
[2017-06-18] MEDS ORDERED: MECL-62 PO (12:30)
--- NOTE | 2017-06-18 12:30 | HHI.DS ---
Discharge Summary Admission Date Jun 16, 2017 at 20:09 Discharge Date: Jun 18, 2017 Admitting Diagnosis Dizziness; hypertensive urgency; chest pain (1) Hypertensive urgency ICD Code: I16.0 - Hypertensive urgency Status: Acute (2) Chest pain ICD Code: R07.9 - Chest pain, unspecified (3) Dizziness ICD Code: R42 - Dizziness and giddiness Status: Acute Procedures None Brief History - From Admission 57-year-old female with no known medical history presents to the emergency room with complaint of not feeling well including lightheadedness, chest tightness, numbness and tingling in her arms. She denies any known medical history. She denies experiencing similar symptoms in the past. No associated shortness of breath, nausea or vomiting. Workup in the emergency room revealed markedly elevated blood pressure up to 213/106. Patient states she was told her blood pressure was high about 3 years ago but she has been trying to manage with diet. Never tried any medications. CBC/BMP: 06/16/17 1804 06/17/17 0630 Significant Findings Laboratory Tests Test 06/16/17 18:04 06/16/17 18:44 06/17/17 00:36 06/17/17 06:30 Random Glucose 115 MG/DL (74-106) Potassium Level 3.4 MEQ/L (3.5-5.1) Anion Gap 4 MEQ/L (5-15) Estimat Glomerular Filtration Rate 88 ML/MIN (>89) 81 ML/MIN (>89) Troponin I LESS THAN 0.02 NG/ML LESS THAN 0.02 NG/ML LESS THAN 0.02 NG/ML Triglycerides Level 40 MG/DL (42-150) LDL Cholesterol 105 MG/DL (0-99) HDL Cholesterol 76.2 MG/DL (40.0-60.0) Urine Leukocyte Esterase TRACE (NEG) Urine Bacteria RARE /hpf (NONE) Urine Mucus FEW /lpf (OCC) PE at Discharge GENERAL: This is a well-nourished, well-developed patient, in no apparent distress. SKIN: Warm and dry HEENT: Normocephalic. Pupils equal round and reactive. Nose without bleeding. Airway patent. NECK: Trachea midline. No JVD. Supple. CARDIOVASCULAR: Regular rate and rhythm with 2/6 murmurs. No gallops, or rubs. RESPIRATORY: Clear to auscultation. Breath sounds equal bilaterally. No wheezes , rales, or rhonchi. GASTROINTESTINAL: Abdomen soft, non-tender, nondistended. Bowel Sounds normoactive x4. MUSCULOSKELETAL: Extremities without clubbing, cyanosis, or edema. NEUROLOGICAL: Awake and alert. Oriented to time, place, person. No focal neuro deficit. Moves all extremities. Normal speech. Pt update on day of discharge Follow-up visit dizziness, lightheadedness, uncontrolled hypertension. Patient seen and examined today sitting in bed. Friend at the bedside. Patient states she is doing fine. Denies any chest pain, palpitations, headaches. Denies any fevers, chills, nausea, vomiting, diarrhea. States that she has no dizziness this time. Discussed with patient that the dizziness is unlikely to be orthostatic hypotension as her orthostatic BP did not show any drop. This is most likely vertigo type is it comes and goes, spinning sensation in the room aggravated by head movement. Hospital Course Patient is a 57-year-old female came into the hospital with complaints of not feeling well, chest tightness, numbness and tingling in her arms and lightheadedness. Patient was found to be hypertensive urgency she was started on lisinopril, Coreg. EKGs were reviewed showing sinus tachycardia. Her blood pressure significantly improved with management of blood pressure medications. His troponin's 3 were negative and her CK were normal. Chest pain is probably related to uncontrolled BP. 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 Madden and sees her once a year. Recommended to follow-up with her police judge. Patient is dizziness possibly related to vertigo. 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 2. Mild los-ventricular and subcortical white matter small vessel ischemic changes.3. No acute infarct, acute hemorrhage, mass effect or extra-axial fluid collections. US carotids showed 1. Mild bilateral carotid plaque 2. No evidence of hemodynamically significant stenosis. 3. Antegrade flow in both vertebral arteries. Orthostatic BP was within normal. This is most likely due to vertigo type as patient describes the dizziness clubbing it go away, spinning sensation to the room aggravated by head movement. Will place patient on meclizine 25 mg as needed. Due to previous lacunar infarcts, will place the patient on low-dose atorvastatin 10 mg daily and also aspirin 81 mg daily. She will continue to follow-up with PCP and cardiology was at outpatient. All of these has been discussed with patient. Patient has met maximal benefits of hospitalization. Clinically stable for discharge. Pt Condition on Discharge: Stable Discharge Disposition: Discharge Home Discharge Time: <= 30 minutes Discharge Instructions DIET: Follow Instructions for: Heart Healthy Diet Activities you can perform: Regular-No Restrictions Activities to Avoid: Driving for 24 hrs Follow up Referrals: Cardiology PCP Follow-up - 1 Week New Medications: Meclizine (Meclizine) 25 Mg Tab 25 MG PO TID PRN for VERTIGO for 30 Days, #30 TAB [address] (Aspirin DR) 81 Mg Tabdr 81 MG PO DAILY for Blood Clot Prevention, #30 TAB Atorvastatin (Lipitor) 10 Mg Tab 10 MG PO DAILY for Cholesterol Management, #30 TAB Carvedilol (Coreg) 3.125 Mg Tab 3.125 MG PO Q12HR for Blood Pressure Management, #60 TAB Lisinopril (Lisinopril) 10 Mg Tab 10 MG PO BID for Blood Pressure Management, #60 TAB Shabbir Ramires Jun 18, 2017 12:30
== END 2017-06-18 14:55 | disposition home or self-care (01) ==
LOC: NEPC 17:11 → NEDA 20:09 → NEPGCP 21:44
PROVIDERS: ADMIT Hospitalist; ATTEND Hospitalist
DX: I16.0 Hypertensive urgency (principal); I10 Essential (primary) hypertension; R07.9 Chest pain, unspecified; R00.0 Tachycardia, unspecified; R42 Dizziness and giddiness; R00.2 Palpitations; R94.31 Abnormal electrocardiogram [ECG] [EKG]; R20.0 Anesthesia of skin; R20.2 Paresthesia of skin; R41.82 Altered mental status, unspecified; R55 Syncope and collapse; I65.23 Occlusion and stenosis of bilateral carotid arteries; E78.00 Pure hypercholesterolemia, unspecified; J45.909 Unspecified asthma, uncomplicated; Z86.73 Personal history of transient ischemic attack (TIA), and cerebral infarction without residual deficits
CPT/HCPCS: 70450; 71045; 80048; 80053; 80061; 81001; 82550; 84443; 84484; 85025; 85610; 85730; 87086; 93005; 93880; 96374; 99285; G0378